=== PATIENT | female | born 1980 | race African-American/Black ===

== ENCOUNTER 2016-07-29 20:01 | Emergency (ER) | payer SELFPAY ==
[~2016-07-29] VITALS: Ht 167.6 cm; Wt 95.0 kg
[~2016-07-29 20:01] MED LIST: LANTUS; LISINOPRIL; METFORMIN
[2016-07-29 20:06] VITALS: BP 157/89
== END 2016-07-29 22:30 | disposition left against medical advice (07) ==
LOC: ER 20:01
DX: Z53.21 Procedure and treatment not carried out due to patient leaving prior to being seen by health care provider (principal)

== ENCOUNTER 2019-01-13 20:45 | Emergency (ER) | payer MEDICAID ==
[~2019-01-13] VITALS: Ht 170.2 cm; Wt 91.0 kg
[2019-01-13] MEDS ORDERED: SODIUM CHLORIDE 0.9% 1,000 ML IV ONE (22:21)
[2019-01-13 22:50] LABS: CHLORIDE 109 mEq/L (98-107); EOSINOPHILS % 1.7 % (0.0-5.0); HEMATOCRIT. 37.9 % (36.0-48.0); HEMOGLOBIN. 13.1 g/dL (12.0-16.0); LYMPHOCYTES % 51.5 % (20.0-50.0); MEAN CORPUSCULAR HEMOGLOBIN 31.5 pg (28.0-32.0); MEAN CORPUSCULAR VOLUME 91.4 fL (81.0-99.0); MEAN PLATELET VOLUME 8.1 fl (7.4-10.4); MONOCYTES % 5.8 % (2.0-8.0); PLATELET 325 x1000/uL (130-400); RED BLOOD CELL COUNT 4.15 mill/uL (4.2-5.4); RED CELL DISTRIBUTION WIDTH 13.3 % (11.6-14.6)
[2019-01-13 22:53] LABS: HCG SCREEN NEGATIVE
[2019-01-13 23:01] LABS: B-HCG QUANTITATIVE 4 mIU/mL (<3)
[2019-01-13] MEDS ORDERED: ONDANSETRON HCL 4MG/2ML INJ IV STA (23:07)
[2019-01-13] MEDS ORDERED: MORPHINE SULFATE 4 MG/ML CPJ (NOT FOR IM USE) IV STA (23:07)
[2019-01-13] MEDS ORDERED: KETOROLAC 30MG/ML VIAL IV STA (23:07)
[2019-01-13 23:42] LABS: CLARITY URINE CLOUDY (CLEAR); COLOR URINE ORANGE (YELLOW); KETONES URINE TRACE (NEGATIVE); LEUKOCYTE ESTERASE URINE TRACE (NEGATIVE); NITRITE URINE NEGATIVE (NEGATIVE); OCCULT BLOOD URINE 3+ (NEGATIVE); PH URINE 5.5 (4.5-8.0); PROTEIN URINE 1+ (NEGATIVE); SPECIFIC GRAVITY URINE 1.043 (1.005-1.030)
[2019-01-13 23:52] LABS: *BARBITURATES SCREEN URINE NEGATIVE (NEGATIVE)
[2019-01-13 23:53] LABS: *AMPHETAMINES SCREEN URINE NEGATIVE (NEGATIVE); *BENZODIAZEPINES SCREEN URINE NEGATIVE (NEGATIVE); *COCAINE SCREEN URINE NEGATIVE (NEGATIVE); CANNABINOID URINE SCREEN NEGATIVE (NEGATIVE); METHADONE URINE SCREEN NEGATIVE (NEGATIVE); OPIATES URINE SCREEN NEGATIVE (NEGATIVE); PHENCYCLIDINE URINE SCREEN NEGATIVE (NEGATIVE)
[2019-01-14] MEDS ORDERED: CEFTRIAXONE 1 G PREMIX 50 ML IV ONE (01:00)
[2019-01-14 02:46] VITALS: BP 111/72
== END 2019-01-14 02:37 | disposition home or self-care (01) ==
LOC: ER 20:45
DX: N39.0 Urinary tract infection, site not specified (principal); E11.9 Type 2 diabetes mellitus without complications; F17.200 Nicotine dependence, unspecified, uncomplicated
CPT/HCPCS: 36415; 74176; 80053; 80305; 81003; 81025; 84702; 84703; 85025; 85610; 86850; 86900; 86901; 96365; 96375; 99284; J0696; J1885; J2270; J2405; J7030; Z7610

== ENCOUNTER 2024-04-14 11:46 | Emergency (ER) | payer MEDICAID ==
[~2024-04-14] VITALS: Ht 172.7 cm; Wt 95.0 kg
[2024-04-14 12:02] VITALS: O2SAT 100
[2024-04-14] MEDS ORDERED: ACET-2708 MT (13:29)
[2024-04-14] MEDS: METOCLOPRAMIDE HCL 10MG/2ML VIAL IM ONE (13:36)
[2024-04-14] MEDS: KETOROLAC 30MG/ML VIAL IM ONE (13:36)
[2024-04-14 14:15] VITALS: BP 158/91; PULSE 84; RESP 18; TEMP 36.8; O2SAT 100
== END 2024-04-14 13:00 | disposition home or self-care (01) ==
LOC: ER 11:46
DX: G43.909 Migraine, unspecified, not intractable, without status migrainosus (principal); E11.9 Type 2 diabetes mellitus without complications
CPT/HCPCS: 81025; 96372; 99284; J1885; J2765; Z7610

== ENCOUNTER 2024-04-19 09:23 | Emergency (ER) | payer MEDICAID ==
[~2024-04-19] VITALS: Ht 170.2 cm; Wt 100.0 kg
[~2024-04-19 09:23] MED LIST changes: +ACET-2708 MT
[2024-04-19 09:29] VITALS: TEMP 36.8; O2SAT 98
[2024-04-19 10:31] LABS: CLARITY URINE CLEAR (CLEAR); COLOR URINE YELLOW (YELLOW); GLUCOSE URINE NEGATIVE (NEGATIVE); KETONES URINE NEGATIVE (NEGATIVE); LEUKOCYTE ESTERASE URINE NEGATIVE (NEGATIVE); NITRITE URINE NEGATIVE (NEGATIVE); OCCULT BLOOD URINE NEGATIVE (NEGATIVE); PROTEIN URINE NEGATIVE (NEGATIVE); SPECIFIC GRAVITY URINE 1.019 (1.005-1.030); UROBILINOGEN URINE 0.2 E.U./dL (0.2-1.0)
[2024-04-19 10:50] VITALS: TEMP 98.3
[2024-04-19] MEDS: ACETAMINOPHEN 325MG TABLET PO ONE (10:50)
[2024-04-19 11:26] LABS: CHLORIDE 107 mEq/L (98-107); SODIUM 138 mEq/L (136-145)
[2024-04-19 11:27] LABS: CARBON DIOXIDE 26 mEq/L (21-32)
[2024-04-19 11:28] LABS: CALCIUM 9.2 mg/dL (8.7-10.4)
[2024-04-19 11:32] LABS: CREATININE 0.8 mg/dL (0.6-1.0); GLUCOSE 139 mg/dL (70-105); UREA NITROGEN BLOOD 7 mg/dL (9-23)
[2024-04-19 11:39] LABS: BASOPHILS % 0.7 % (0.0-2.0); EOSINOPHILS % 0.6 % (0.0-5.0); HEMOGLOBIN. 13.1 g/dL (12.0-16.0); LYMPHOCYTES % 31.6 % (20.0-50.0); MEAN CORPUSCULAR HEMOGLOBIN 31.3 pg (28.0-32.0); MEAN CORPUSCULAR HGB CONC 33.5 g/dL (31.0-37.0); MEAN CORPUSCULAR VOLUME 93.2 fL (81.0-99.0); MEAN PLATELET VOLUME 8.6 fl (7.4-10.4); MONOCYTES % 5.5 % (2.0-8.0); NEUTROPHILS % 61.6 % (40.0-76.0); PLATELET 307 x1000/uL (130-400); RED BLOOD CELL COUNT 4.18 mill/uL (4.2-5.4); RED CELL DISTRIBUTION WIDTH 13.6 % (11.6-14.6); WHITE BLOOD COUNT 9.9 x1000/uL (4.5-11.0)
[2024-04-19] MEDS ORDERED: AMLO5TAB88 MT (11:42)
[2024-04-19] MEDS ORDERED: IBUP-2029 MT (11:42)
[2024-04-19 12:02] VITALS: BP 172/107; PULSE 79; RESP 16; O2SAT 98
== END 2024-04-19 12:09 | disposition home or self-care (01) ==
LOC: ER 09:29
DX: G43.909 Migraine, unspecified, not intractable, without status migrainosus (principal); I10 Essential (primary) hypertension; E11.9 Type 2 diabetes mellitus without complications; Z98.890 Other specified postprocedural states; Z79.899 Other long term (current) drug therapy
CPT/HCPCS: 36415; 80048; 81003; 85025; 93005; 99284

== ENCOUNTER → 2024-05-05 | Outpatient (CLI) | payer BC, MEDICAID ==
[~2024-05-05] MED LIST changes: +AMLO5TAB88 MT; +IBUP-2029 MT
[2024-05-05 12:28] LABS: BASOPHILS % 0.5 % (0.0-2.0); EOSINOPHILS % 1.3 % (0.0-5.0); HEMATOCRIT. 39.5 % (36.0-48.0); HEMOGLOBIN. 13.3 g/dL (12.0-16.0); LYMPHOCYTES % 23.1 % (20.0-50.0); MEAN CORPUSCULAR HEMOGLOBIN 30.8 pg (28.0-32.0); MEAN CORPUSCULAR HGB CONC 33.5 g/dL (31.0-37.0); MEAN CORPUSCULAR VOLUME 91.7 fL (81.0-99.0); MEAN PLATELET VOLUME 8.4 fl (7.4-10.4); MONOCYTES % 6.2 % (2.0-8.0); NEUTROPHILS % 68.9 % (40.0-76.0); PLATELET 384 x1000/uL (130-400); RED BLOOD CELL COUNT 4.31 mill/uL (4.2-5.4); RED CELL DISTRIBUTION WIDTH 13.5 % (11.6-14.6); WHITE BLOOD COUNT 11.2 x1000/uL (4.5-11.0)
[2024-05-05 12:33] LABS: CLARITY URINE CLEAR (CLEAR); COLOR URINE YELLOW (YELLOW); GLUCOSE URINE NEGATIVE (NEGATIVE); KETONES URINE NEGATIVE (NEGATIVE); LEUKOCYTE ESTERASE URINE NEGATIVE (NEGATIVE); NITRITE URINE NEGATIVE (NEGATIVE); OCCULT BLOOD URINE NEGATIVE (NEGATIVE); PH URINE 5.5 (4.5-8.0); PROTEIN URINE NEGATIVE (NEGATIVE); SPECIFIC GRAVITY URINE 1.009 (1.005-1.030); UROBILINOGEN URINE 0.2 E.U./dL (0.2-1.0)
[2024-05-05 12:36] LABS: CARBON DIOXIDE 25 mEq/L (21-32); CHLORIDE 103 mEq/L (98-107); POTASSIUM 3.5 mEq/L (3.5-5.1); SODIUM 137 mEq/L (136-145)
[2024-05-05 12:37] LABS: CALCIUM 9.8 mg/dL (8.7-10.4)
[2024-05-05 12:41] LABS: IRON 51 ug/dL (50-170); URIC ACID 4.9 mg/dL (3.1-7.8)
[2024-05-05 12:42] LABS: CREATININE 0.8 mg/dL (0.6-1.0); GLUCOSE 198 mg/dL (70-105); TRIGLYCERIDE 274 mg/dL (0-150); UREA NITROGEN BLOOD 11 mg/dL (9-23)
[2024-05-05 12:43] LABS: ALANINE AMINOTRANSFERASE 16 IU/L (10-49); ALBUMIN 4.3 g/dL (3.2-4.8); ASPARTATE AMINOTRANSFERASE 17 IU/L (<34); LDL CHOLESTEROL 129 mg/dL (5-100)
[2024-05-05 12:44] LABS: BILIRUBIN TOTAL 0.3 mg/dL (0.1-1.0); CHOLESTEROL 205 mg/dL (<200); HDL CHOLESTEROL 29 mg/dL (>65); PHOSPHORUS 2.7 mg/dL (2.5-4.9); PROTEIN TOTAL 7.3 g/dL (6.0-8.3); TOTAL IRON BINDING CAPACITY 390 ug/dl (250-425)
[2024-05-05 12:46] LABS: THYROID STIMULATING HORMONE 0.49 uIU/mL (0.55-4.78)
[2024-05-05 12:53] LABS: C REACTIVE PROTEIN QUANT 10.3 mg/L (0.0-3.0)
[2024-05-05 13:06] LABS: BILIRUBIN DIRECT < 0.1 mg/dL (<=3.0)
[2024-05-05 13:15] LABS: CORTISOL 13.6 ucg/dL
[2024-05-05 13:20] LABS: HEPATITIS B SURFACE AB 147.6 mIU/mL (<10)
[2024-05-05 13:36] LABS: ERYTHROCYTE SEDIMENTATION RATE 28 mm/hr (0-20)
[2024-05-05 13:52] LABS: HEPATITIS A AB IGM NEGATIVE (Negative)
[2024-05-05 13:53] LABS: HEPATITIS B CORE AB IGM NEGATIVE (Negative)
[2024-05-07 08:10] LABS: *T3 UPTAKE 22 % (24-39); ESTRADIOL 27.1 pg/mL (.); FOLICLE STIMULATING HORMONE 2.4 mIU/mL (.); LUTEINIZING HORMONE 2.1 mIU/mL (.); PROGESTERONE 1.5 ng/mL (.); TRANSFERRIN 265 mg/dL (192-364); VITAMIN D 25-OH 46.7 ng/mL (30.0-100.0)
== END | disposition home or self-care (01) ==
LOC: LAB 11:02
DX: S23.123 Dislocation of T3/T4 thoracic vertebra (principal); R05.9 Cough, unspecified; I10 Essential (primary) hypertension; N39.0 Urinary tract infection, site not specified; E24.3 Ectopic ACTH syndrome; B96.81 Helicobacter pylori [H. pylori] as the cause of diseases classified elsewhere; E28.0 Estrogen excess; E28.8 Other ovarian dysfunction; D68.9 Coagulation defect, unspecified; R60.9 Edema, unspecified; E78.00 Pure hypercholesterolemia, unspecified; R10.9 Unspecified abdominal pain; E55.9 Vitamin D deficiency, unspecified; R79.89 Other specified abnormal findings of blood chemistry; R89.1 Abnormal level of hormones in specimens from other organs, systems and tissues; Z00.00 Encounter for general adult medical examination without abnormal findings; Z79.899 Other long term (current) drug therapy; R94.6 Abnormal results of thyroid function studies; R94.5 Abnormal results of liver function studies; Z87.891 Personal history of nicotine dependence; X58.XXXA Exposure to other specified factors, initial encounter; Y93.89 Activity, other specified; Y92.89 Other specified places as the place of occurrence of the external cause; Y99.8 Other external cause status
CPT/HCPCS: 36415; 71046; 80053; 80061; 81003; 82024; 82248; 82306; 82533; 82670; 83001; 83002; 83036; 83540; 83550; 84100; 84144; 84403; 84443; 84466; 84479; 84550; 85025; 85651; 86140; 86705; 86706; 86709